=== PATIENT | female | born 1945 | race Two or more races ===

== ENCOUNTER → 2017-10-09 | Emergency (ER) | payer OTHER ==
[~2017-10-09] VITALS: Ht 162.6 cm; Wt 97.5 kg
== END | disposition home or self-care (01) ==
LOC: ER 07:51
DX: K29.70 Gastritis, unspecified, without bleeding (principal); M54.89 Other dorsalgia

== ENCOUNTER 2018-03-07 08:46 | Outpatient (CLI) | payer OTHER | END 2018-03-07 09:19 | disposition home or self-care (01) | LOC: MAMO-SONO 08:46 | DX: Z12.31 Encounter for screening mammogram for malignant neoplasm of breast (principal); Z87.898 Personal history of other specified conditions; N60.11 Diffuse cystic mastopathy of right breast ==

== ENCOUNTER 2019-04-03 09:30 | Outpatient (CLI) | payer OTHER | END 2019-04-03 09:43 | disposition home or self-care (01) | LOC: MAMO-SONO 09:30 | DX: N60.11 Diffuse cystic mastopathy of right breast (principal); N60.12 Diffuse cystic mastopathy of left breast; Z12.31 Encounter for screening mammogram for malignant neoplasm of breast ==

== ENCOUNTER 2019-08-23 09:09 | Outpatient (CLI) | payer OTHER | END 2019-08-23 09:32 | disposition home or self-care (01) | LOC: MAMO-SONO 09:09 | DX: R74.0 Nonspecific elevation of levels of transaminase and lactic acid dehydrogenase [LDH] (principal) ==

== ENCOUNTER 2020-05-27 11:08 | Outpatient (CLI) | payer OTHER | END 2020-05-27 11:10 | disposition home or self-care (01) | LOC: MAMO-SONO 11:08 | PROVIDERS: ATTEND Obstetrics & Gynecology | DX: Z12.31 Encounter for screening mammogram for malignant neoplasm of breast (principal); N60.11 Diffuse cystic mastopathy of right breast; N60.12 Diffuse cystic mastopathy of left breast ==

== ENCOUNTER 2020-05-27 12:45 | Outpatient (CLI) | payer OTHER | END 2020-05-27 12:53 | disposition home or self-care (01) | LOC: NUCLEAR 12:45 | PROVIDERS: ATTEND Obstetrics & Gynecology | DX: M81.0 Age-related osteoporosis without current pathological fracture (principal) ==

== ENCOUNTER 2021-03-24 10:09 | Outpatient (CLI) | payer OTHER | END 2021-03-24 10:19 | disposition home or self-care (01) | LOC: MAMO-SONO 10:09 | PROVIDERS: ATTEND General Practice | DX: Q61.01 Congenital single renal cyst (principal); Z12.31 Encounter for screening mammogram for malignant neoplasm of breast; K80.00 Calculus of gallbladder with acute cholecystitis without obstruction; R74.01 Elevation of levels of liver transaminase levels ==

== ENCOUNTER 2022-07-10 12:01 | Outpatient (CLI) | payer OTHER | END 2022-07-10 12:02 | disposition home or self-care (01) | LOC: NUCLEAR 12:01 | PROVIDERS: ATTEND General Practice | DX: M81.0 Age-related osteoporosis without current pathological fracture (principal) ==

== ENCOUNTER 2023-06-26 08:37 | Outpatient (CLI) | payer OTHER | END 2023-06-26 08:48 | disposition home or self-care (01) | LOC: SONOGRAMA 08:37 | PROVIDERS: ATTEND General Practice | DX: K76.0 Fatty (change of) liver, not elsewhere classified (principal) ==

== ENCOUNTER 2023-07-03 10:05 | Outpatient (CLI) | payer OTHER | END 2023-07-03 10:40 | disposition home or self-care (01) | LOC: MRI 10:05 | PROVIDERS: ATTEND General Practice | DX: M25.512 Pain in left shoulder (principal) | CPT/HCPCS: 73221 ==

== ENCOUNTER 2023-07-12 09:57 | Outpatient (CLI) | payer OTHER | END 2023-07-12 10:05 | disposition home or self-care (01) | LOC: MAMO-SONO 09:57 | PROVIDERS: ATTEND General Practice | DX: Z12.31 Encounter for screening mammogram for malignant neoplasm of breast (principal) ==

== ENCOUNTER 2024-04-03 10:21 | Outpatient (CLI) | payer OTHER | END 2024-04-03 10:22 | disposition home or self-care (01) | LOC: NUCLEAR 10:21 | PROVIDERS: ATTEND General Practice | DX: I87.2 Venous insufficiency (chronic) (peripheral) (principal) ==

== ENCOUNTER 2024-09-02 11:55 | Outpatient (CLI) | payer OTHER | END 2024-09-02 12:04 | disposition home or self-care (01) | LOC: MAMO-SONO 11:55 | PROVIDERS: ATTEND General Practice | DX: N60.99 Unspecified benign mammary dysplasia of unspecified breast (principal); Z12.31 Encounter for screening mammogram for malignant neoplasm of breast ==